=== PATIENT | female | born 1990 | race Caucasian/White ===

== ENCOUNTER 2018-07-28 21:54 | Emergency (ER) | payer OTHER, BC ==
[2018-07-28 23:06] LABS: CONTROL LINE HCG INT CTR LINE PRESENT; HCG, SERUM QUALITATIVE NEGATIVE (NEGATIVE); HEMATOCRIT 43.9 % (36.0-47.0); HEMOGLOBIN 14.8 g/dl (12.0-15.5); MEAN CORPUSCULAR HGB CONC 33.7 g/dl (32.0-36.5); MEAN CORPUSCULAR VOLUME 86.1 fl (80.0-96.0); PLATELET COUNT, AUTOMATED 317 10^3/uL (150-450); RED CELL DISTRIBUTION WIDTH 13.1 % (11.5-14.5); WHITE BLOOD COUNT 5.9 10^3/uL (4.0-10.0)
[2018-07-28 23:21] LABS: ACETAMINOPHEN LEVEL < 2.0 UG/ML (10.0-30.0); ALBUMIN 4.5 GM/DL (3.2-5.2); ALBUMIN/GLOBULIN RATIO 1.55 (1.00-1.93); ALKALINE PHOSPHATASE 47 U/L (45-117); ALT/SGPT 21 U/L (12-78); ANION GAP 12 MEQ/L (8-16); AST/SGOT 18 U/L (7-37); BILIRUBIN,DIRECT 0.1 MG/DL (0.0-0.2); BILIRUBIN,TOTAL 0.4 MG/DL (0.2-1.0); BLOOD UREA NITROGEN 4 MG/DL (7-18); CALCIUM LEVEL 8.8 MG/DL (8.5-10.1); CARBON DIOXIDE LEVEL 27 MEQ/L (21-32); CHLORIDE LEVEL 103 MEQ/L (98-107); CREATININE FOR GFR 0.62 MG/DL (0.55-1.30); ETHYL ALCOHOL (ETHANOL) 0.004 % (0.000-0.010); GLOMERULAR FILTRATION RATE > 60.0 (>60); GLUCOSE, FASTING 79 MG/DL (70-100); POTASSIUM SERUM 3.6 MEQ/L (3.5-5.1); SALICYLATE LEVEL < 1.7 MG/DL (5.0-30.0); SODIUM LEVEL 142 MEQ/L (136-145); TOTAL PROTEIN 7.4 GM/DL (6.4-8.2)
[2018-07-28 23:30] LABS: AMPHETAMINES LEVEL URINE NEGATIVE (NEGATIVE); BARBITURATES URINE NEGATIVE (NEGATIVE); BENZODIAZEPINES URINE NEGATIVE (NEGATIVE); CANNABINOIDS URINE NEGATIVE (NEGATIVE); COCAINE METABOLITE URINE NEGATIVE (NEGATIVE); METHADONE URINE NEGATIVE (NEGATIVE); OPIATES URINE NEGATIVE (NEGATIVE); PHENCYCLIDINE URINE NEGATIVE (NEGATIVE)
[2018-07-29] MEDS: ACETAMINOPHEN 325 MG TAB PO (02:39)
== END 2018-07-29 03:37 | disposition short-term general hospital (02) ==
LOC: M ED 07-29 03:37
DX: F32.9 Major depressive disorder, single episode, unspecified (principal); R45.851 Suicidal ideations
CPT/HCPCS: G0480

== ENCOUNTER 2022-06-10 10:45 | Inpatient (IN) | payer OTHER, SELFPAY ==
[~2022-06-10] VITALS: Ht 152.4 cm; Wt 51.0 kg
[~2022-06-10 10:45] MED LIST: ATIV0.5T OR; ATIV1TAB10 PO; EFFE75CA75 OR; EFFEXOR PO; KLON1TAB OR; LORA1TAB4 PO; PRISTIQ PO; REME15TA OR; REME30TA OR; SERO200T43 OR; SEROQUEL PO; TRAZ50TA OR; WELLTAB40 PO
[2022-06-10] MEDS ORDERED: ALPR1TAB3 PO (11:02)
[2022-06-10] MEDS ORDERED: TRAZ-252 PO (11:02)
[2022-06-10 11:28] LABS: HEMATOCRIT 38.4 % (36.0-47.0); HEMOGLOBIN 11.7 g/dl (12.0-15.5); MEAN CORPUSCULAR HEMOGLOBIN 24.9 pg (27.0-33.0); MEAN CORPUSCULAR HGB CONC 30.5 g/dl (32.0-36.5); MEAN CORPUSCULAR VOLUME 81.9 fl (80.0-96.0); PLATELET COUNT, AUTOMATED 282 10^3/uL (150-450); RED BLOOD COUNT 4.69 10^6/uL (4.00-5.40); WHITE BLOOD COUNT 3.8 10^3/uL (4.0-10.0)
[2022-06-10 12:04] LABS: HCG, SERUM QUALITATIVE NEGATIVE (NEGATIVE); RSV AMPLIFICATION NEGATIVE (NEGATIVE)
[2022-06-10 12:20] LABS: ACETAMINOPHEN LEVEL < 2.0 UG/ML (10.0-30.0); ALT/SGPT 49 U/L (12-78); BILIRUBIN,DIRECT 0.1 MG/DL (0.0-0.2); BILIRUBIN,TOTAL 0.4 MG/DL (0.2-1.0); BLOOD UREA NITROGEN 11 MG/DL (7-18); CALCIUM LEVEL 9.3 MG/DL (8.5-10.1); CARBON DIOXIDE LEVEL 26 MEQ/L (21-32); CHLORIDE LEVEL 105 MEQ/L (98-107); CREATININE FOR GFR 0.54 MG/DL (0.55-1.30); ETHYL ALCOHOL (ETHANOL) < 0.003 % (0.000-0.010); GLOMERULAR FILTRATION RATE > 60.0 (>60); GLUCOSE, FASTING 87 MG/DL (70-100); POTASSIUM SERUM 4.1 MEQ/L (3.5-5.1); SALICYLATE LEVEL < 1.7 MG/DL (5.0-30.0); SODIUM LEVEL 138 MEQ/L (136-145); TOTAL PROTEIN 7.1 GM/DL (6.4-8.2)
[2022-06-10 12:23] LABS: AMPHETAMINES LEVEL URINE NEGATIVE (NEGATIVE); BARBITURATES URINE NEGATIVE (NEGATIVE); BENZODIAZEPINES URINE POSITIVE (NEGATIVE); CANNABINOIDS URINE NEGATIVE (NEGATIVE); COCAINE METABOLITE URINE NEGATIVE (NEGATIVE); METHADONE URINE NEGATIVE (NEGATIVE); OPIATES URINE NEGATIVE (NEGATIVE); PHENCYCLIDINE URINE NEGATIVE (NEGATIVE)
[2022-06-10] MEDS ORDERED: ALPRAZolam 0.5 MG TAB PO ONE (17:05)
[2022-06-10] MEDS ORDERED: ZINC30CA PO (18:44)
[2022-06-10] MEDS ORDERED: EQL1CAP9 PO (18:44)
[2022-06-11] MEDS ORDERED: BACITAB PO (07:46)
[2022-06-11] MEDS ORDERED: CHEL50TA2 PO (07:46)
[2022-06-11] MEDS ORDERED: HOME MED LIST COMPLETE! XX SCH (07:50)
[2022-06-11] MEDS: ALPRAZolam 0.5 MG TAB PO SCH ×3 (12:01→20:40)
[2022-06-11] MEDS ORDERED: traZODone 50 MG TAB PO SCH (21:00)
[2022-06-12] MEDS: ALPRAZolam 0.5 MG TAB PO SCH ×3 (08:16→22:41)
[2022-06-12] MEDS: NICOTINE 21MG/24HR 1 EA TRANSDERMAL TD SCH (09:00)
[2022-06-12] MEDS ORDERED: MAALOX 30 ML SUSP *UDC PO PRN (14:35)
[2022-06-12] MEDS ORDERED: OLANZapine ORAL DISINTEGRATING TAB 5MG PO PRN (14:35)
[2022-06-12] MEDS ORDERED: traZODone 50 MG TAB PO PRN (14:35)
[2022-06-12] MEDS ORDERED: IBUPROFEN 400MG TAB PO PRN (14:35)
[2022-06-12 19:25] LABS: RSV AMPLIFICATION NEGATIVE (NEGATIVE)
[2022-06-12 22:00] VITALS: BP 109/72
[2022-06-12] MEDS: traZODone 50 MG TAB PO SCH (22:41)
[2022-06-13 06:40] VITALS: BP 98/58
[2022-06-13] MEDS: LACTOBACILLUS ACIDOPHILUS CAP (BACID) PO SCH (08:33)
[2022-06-13] MEDS: ALPRAZolam 0.5 MG TAB PO SCH ×3 (08:34→21:51)
[2022-06-13] MEDS: NICOTINE 21MG/24HR 1 EA TRANSDERMAL TD SCH (08:34)
[2022-06-13 16:35] VITALS: BP 108/56
[2022-06-13] MEDS: traZODone 50 MG TAB PO SCH (21:51)
[2022-06-13] MEDS: ARIPiprazole 2 MG TAB PO SCH (21:51)
[2022-06-14 06:41] VITALS: BP 120/71
[2022-06-14 06:42] VITALS: BP 116/54
[2022-06-14 07:07] LABS: CHOLESTEROL RISK RATIO 2.516 (<5)
[2022-06-14] MEDS: ALPRAZolam 0.5 MG TAB PO SCH ×3 (08:16→21:42)
[2022-06-14] MEDS: LACTOBACILLUS ACIDOPHILUS CAP (BACID) PO SCH (08:16)
[2022-06-14] MEDS: MOM 30ML SUSPENSION UDC PO PRN (09:21)
[2022-06-14 16:22] VITALS: BP 114/56
[2022-06-14] MEDS: traZODone 50 MG TAB PO SCH (21:41)
[2022-06-14] MEDS: ARIPiprazole 2 MG TAB PO SCH (21:41)
[2022-06-15 06:20] VITALS: BP 101/57
[2022-06-15] MEDS: ALPRAZolam 0.5 MG TAB PO SCH ×3 (07:56→21:26)
[2022-06-15] MEDS: LACTOBACILLUS ACIDOPHILUS CAP (BACID) PO SCH (07:56)
[2022-06-15] MEDS: MOM 30ML SUSPENSION UDC PO PRN (12:54)
[2022-06-15 16:26] VITALS: BP 91/57
[2022-06-15] MEDS: ARIPiprazole 2 MG TAB PO SCH (21:26)
[2022-06-15] MEDS: traZODone 50 MG TAB PO SCH (21:26)
[2022-06-16 06:12] VITALS: BP 100/51
[2022-06-16] MEDS: ALPRAZolam 0.5 MG TAB PO SCH ×3 (08:09→20:57)
[2022-06-16] MEDS: LACTOBACILLUS ACIDOPHILUS CAP (BACID) PO SCH (08:09)
[2022-06-16] MEDS: METAMUCIL (PSYLLIUM) PACKET PO SCH ×2 (11:21→20:57)
[2022-06-16 18:29] VITALS: BP 108/65
[2022-06-16] MEDS: traZODone 50 MG TAB PO SCH (20:57)
[2022-06-16] MEDS: MOM 30ML SUSPENSION UDC PO PRN (20:57)
[2022-06-16] MEDS: ARIPiprazole 2 MG TAB PO SCH (20:57)
[2022-06-17 06:12] VITALS: BP 103/55
[2022-06-17] MEDS: LACTOBACILLUS ACIDOPHILUS CAP (BACID) PO SCH (08:13)
[2022-06-17] MEDS: ALPRAZolam 0.5 MG TAB PO SCH ×3 (08:13→20:56)
[2022-06-17] MEDS: METAMUCIL (PSYLLIUM) PACKET PO SCH ×2 (08:14→20:56)
[2022-06-17 16:10] VITALS: BP 109/62
[2022-06-17] MEDS: traZODone 50 MG TAB PO SCH (20:56)
[2022-06-17] MEDS: ARIPiprazole 2 MG TAB PO SCH (20:56)
[2022-06-18 06:17] VITALS: BP 95/57
[2022-06-18] MEDS: LACTOBACILLUS ACIDOPHILUS CAP (BACID) PO SCH (08:12)
[2022-06-18] MEDS: ALPRAZolam 0.5 MG TAB PO SCH (08:12)
[2022-06-18] MEDS: METAMUCIL (PSYLLIUM) PACKET PO SCH (08:13)
[2022-06-18] MEDS ORDERED: ABIL1TAB13 PO (09:17)
[2022-06-18] MEDS ORDERED: TRAZ-252 PO ×2 (09:17)
[2022-06-18] MEDS ORDERED: ALPR1TAB3 PO (09:17)
== END 2022-06-18 11:40 | disposition home or self-care (01) | DRG 751 ==
LOC: M ED 10:45 → M ED INP 10:46 → M PSY 06-12 21:46
PROVIDERS: ADMIT Psychiatry & Neurology Psychiatry; ATTEND Student in an Organized Health Care Education/Training Program
DX: F33.1 Major depressive disorder, recurrent, moderate (principal); F50.00 Anorexia nervosa, unspecified; F43.10 Post-traumatic stress disorder, unspecified; F60.3 Borderline personality disorder; Z20.822 Contact with and (suspected) exposure to COVID-19; R45.851 Suicidal ideations; R45.850 Homicidal ideations; Z90.49 Acquired absence of other specified parts of digestive tract; Z79.899 Other long term (current) drug therapy; Z88.2 Allergy status to sulfonamides; Z91.018 Allergy to other foods; Z91.51 Personal history of suicidal behavior

== ENCOUNTER 2024-02-12 21:10 | Emergency (ER) | payer OTHER ==
[~2024-02-12] VITALS: Ht 154.9 cm; Wt 59.8 kg
[2024-02-12 21:10] VITALS: BP 120/76; TEMP 97.8; O2SAT 98
[~2024-02-12 21:10] MED LIST changes: +ABIL1TAB13 PO; +ALPR1TAB3 PO; +BACITAB PO; +CHEL50TA2 PO; +EQL1CAP9 PO; +LORA1TAB23 PO; -LORA1TAB4 PO; +TRAZ-252 PO; +ZINC30CA PO
[2024-02-13] MEDS ORDERED: RALTEGRAVIR 400 MG TAB (ISENTRESS) PO SCH
[2024-02-13] MEDS ORDERED: EMTRICITABINE/TENOFOVIR 200MG/300MG TABLET PO SCH
[2024-02-13] MEDS ORDERED: EXPOSURE KIT-ADULT 7 DAY SUPPLY PO ONE (00:05)
[2024-02-13 00:30] LABS: BASO % 0.4 % (0.0-1.0); EOS % 0.3 % (0.0-3.0); HEMATOCRIT 42.9 % (36.0-47.0); HEMOGLOBIN 14.2 g/dl (12.0-15.5); LYMPH # 1.5 10^3/uL (1.5-5.0); LYMPH % 20.3 % (24.0-44.0); MEAN CORPUSCULAR HEMOGLOBIN 29.1 pg (27.0-33.0); MEAN CORPUSCULAR HGB CONC 33.1 g/dl (32.0-36.5); MEAN CORPUSCULAR VOLUME 87.9 fl (80.0-96.0); MONO # 0.6 10^3/uL (0.0-0.8); MONO % 7.8 % (2.0-8.0); NEUTROPHILS # 5.4 10^3/uL (1.5-8.5); NEUTROPHILS % 71.1 % (36.0-66.0); PLATELET COUNT, AUTOMATED 293 10^3/uL (150-450); RED BLOOD COUNT 4.88 10^6/uL (4.00-5.40); WHITE BLOOD COUNT 7.6 10^3/uL (4.0-10.0)
[2024-02-13 00:55] LABS: ALBUMIN 3.9 G/DL (3.2-5.2); ALKALINE PHOSPHATASE 49 U/L (46-116); ALT/SGPT 31 U/L (7.0-40); AST/SGOT 23 U/L (<34); BILIRUBIN,TOTAL 0.4 MG/DL (0.3-1.2); BLOOD UREA NITROGEN 14 MG/DL (9-23); CALCIUM LEVEL 9.3 MG/DL (8.5-10.1); CARBON DIOXIDE LEVEL 26 MMOL/L (20-31); CHLORIDE LEVEL 106 MMOL/L (98-107); CREATININE FOR GFR 0.56 MG/DL (0.55-1.30); GLOMERULAR FILTRATION RATE > 60.0 (>60); GLUCOSE, FASTING 88 MG/DL (60-100); POTASSIUM SERUM 4.1 MMOL/L (3.5-5.1); SODIUM LEVEL 141 MMOL/L (136-145); TOTAL PROTEIN 6.9 G/DL (5.7-8.2)
[2024-02-13 00:57] LABS: HEPATITIS B SURFACE ANTIBODY POSITIVE (POSITIVE)
[2024-02-13 01:08] LABS: HEPATITIS B SURFACE ANTIGEN NEGATIVE (NEGATIVE)
[2024-02-13 01:22] LABS: HCG, SERUM QUALITATIVE NEGATIVE (NEGATIVE); HIV 1&2 SCREEN NEGATIVE (NEGATIVE)
[2024-02-13 01:30] LABS: HEPATITIS C VIRUS ABY INDEX < 0.02 INDEX (<0.8)
[2024-02-13 01:35] LABS: Trichomonas vaginalis (AMP) NOT DETECTED (NEGATIVE)
[2024-02-13 01:58] LABS: GC DNA AMPLIFICATION NEGATIVE (NEGATIVE)
[2024-02-13] MEDS: metroNIDAZOLE (FLAGYL) 500MG TABLET PO ONE (02:25)
[2024-02-13] MEDS: AZITHROMYCIN 250MG TABLET PO ONE (02:25)
[2024-02-13] MEDS: ULIPRISTAL ACETATE 30MG TAB (ELLA) PO ONE (02:26)
[2024-02-13] MEDS: RALTEGRAVIR 400 MG TAB (ISENTRESS) PO ONE (02:27)
[2024-02-13] MEDS: EMTRICITABINE/TENOFOVIR 200MG/300MG TABLET PO ONE (02:27)
[2024-02-13] MEDS: cefTRIAXone 500MG VIAL IM ONE (02:27)
[2024-02-13] MEDS: LIDOCAINE 1% SDV 5ML VIAL DILUENT ONE (02:28)
[2024-02-13] MEDS: ACETAMINOPHEN TAB 650MG DOSE (2X325MG) PO ONE (03:57)
[2024-02-13] MEDS ORDERED: DOXY100C82 PO (03:59)
[2024-02-13] MEDS ORDERED: EMTR1TAB16 PO (03:59)
[2024-02-13] MEDS ORDERED: RALT40TA PO (03:59)
== END 2024-02-13 04:19 | disposition home or self-care (01) ==
LOC: M ED 21:10
DX: T76.21XA Adult sexual abuse, suspected, initial encounter (principal); X58.XXXA Exposure to other specified factors, initial encounter; Y92.009 Unspecified place in unspecified non-institutional (private) residence as the place of occurrence of the external cause; Y93.9 Activity, unspecified; Y99.9 Unspecified external cause status; Z79.899 Other long term (current) drug therapy; Z88.2 Allergy status to sulfonamides; Z91.010 Allergy to peanuts
CPT/HCPCS: 80053; 81001; 84703; 85025; 86706; 86780; 86803; 87340; 87389; 87661; 87810; 87850; 96372; 99284; J0696

== ENCOUNTER 2024-05-31 22:18 | Emergency (ER) | payer OTHER, SELFPAY ==
[~2024-05-31] VITALS: Ht 165.1 cm; Wt 62.7 kg
[~2024-05-31 22:18] MED LIST changes: +DOXY100C82 PO; +EMTR1TAB16 PO; +RALT40TA PO
[2024-05-31 22:19] VITALS: BP 160/91; TEMP 98.9; O2SAT 98
[2024-05-31 23:34] LABS: BASO % 0.5 % (0.0-1.0); EOS % 0.4 % (0.0-3.0); HEMATOCRIT 44.5 % (36.0-47.0); HEMOGLOBIN 14.9 g/dl (12.0-15.5); LYMPH # 1.8 10^3/uL (1.5-5.0); LYMPH % 23.3 % (24.0-44.0); MEAN CORPUSCULAR HEMOGLOBIN 30.6 pg (27.0-33.0); MEAN CORPUSCULAR HGB CONC 33.5 g/dl (32.0-36.5); MEAN CORPUSCULAR VOLUME 91.4 fl (80.0-96.0); MONO # 0.6 10^3/uL (0.0-0.8); MONO % 7.5 % (2.0-8.0); NEUTROPHILS # 5.2 10^3/uL (1.5-8.5); PLATELET COUNT, AUTOMATED 298 10^3/uL (150-450); RED BLOOD COUNT 4.87 10^6/uL (4.00-5.40); WHITE BLOOD COUNT 7.7 10^3/uL (4.0-10.0)
[2024-05-31 23:58] LABS: ALBUMIN 4.3 G/DL (3.2-5.2); ALKALINE PHOSPHATASE 54 U/L (46-116); ALT/SGPT 32 U/L (7.0-40); AST/SGOT 21 U/L (<34); BILIRUBIN,TOTAL 0.5 MG/DL (0.3-1.2); BLOOD UREA NITROGEN 16 MG/DL (9-23); CALCIUM LEVEL 9.1 MG/DL (8.5-10.1); CARBON DIOXIDE LEVEL 26 MMOL/L (20-31); CHLORIDE LEVEL 107 MMOL/L (98-107); CREATININE FOR GFR 0.56 MG/DL (0.55-1.30); GLOMERULAR FILTRATION RATE > 60.0 (>60); GLUCOSE, FASTING 91 MG/DL (60-100); POTASSIUM SERUM 3.7 MMOL/L (3.5-5.1); SODIUM LEVEL 138 MMOL/L (136-145); TOTAL PROTEIN 6.9 G/DL (5.7-8.2)
[2024-06-01] MEDS ORDERED: RALTEGRAVIR 400 MG TAB (ISENTRESS) PO SCH
[2024-06-01 00:06] LABS: HEPATITIS B SURFACE ANTIBODY POSITIVE (POSITIVE)
[2024-06-01] MEDS: ONDANSETRON 4MG ORAL DISINTEGRATING TAB PO ONE (00:15)
[2024-06-01 00:19] LABS: HEPATITIS B SURFACE ANTIGEN NEGATIVE (NEGATIVE)
[2024-06-01 00:32] LABS: HIV 1&2 SCREEN NEGATIVE (NEGATIVE)
[2024-06-01 00:39] LABS: HEPATITIS C VIRUS ABY INDEX < 0.02 INDEX (<0.8)
[2024-06-01] MEDS ORDERED: EXPOSURE KIT-ADULT 7 DAY SUPPLY PO ONE (01:05)
[2024-06-01] MEDS: LIDOCAINE 1% SDV 5ML VIAL DILUENT ONE (03:02)
[2024-06-01] MEDS: DOXYCYCLINE HYCLATE 100MG TABLET PO ONE (03:02)
[2024-06-01] MEDS: cefTRIAXone 500MG VIAL IM ONE (03:02)
[2024-06-01] MEDS: ULIPRISTAL ACETATE 30MG TAB (ELLA) PO ONE (03:02)
[2024-06-01] MEDS: RALTEGRAVIR 400 MG TAB (ISENTRESS) PO ONE (03:35)
[2024-06-01] MEDS: EMTRICITABINE/TENOFOVIR 200MG/300MG TABLET PO ONE (03:35)
[2024-06-01] MEDS: metroNIDAZOLE (FLAGYL) 500MG TABLET PO ONE (04:00)
[2024-06-02] MEDS ORDERED: EMTRICITABINE/TENOFOVIR 200MG/300MG TABLET PO SCH
== END 2024-06-01 04:36 | disposition home or self-care (01) ==
LOC: M ED 22:18
DX: T74.21XA Adult sexual abuse, confirmed, initial encounter (principal); Z88.2 Allergy status to sulfonamides; Z91.010 Allergy to peanuts; Z79.2 Long term (current) use of antibiotics; Z79.899 Other long term (current) drug therapy
CPT/HCPCS: 80053; 85025; 86706; 86780; 86803; 87340; 87389; 96372; 99283; J0696